=== PATIENT | female | born 1950 | race Caucasian/White ===

== ENCOUNTER 2020-07-07 12:23 | Emergency (ER) | payer MEDICARE, MEDICAID, SELFPAY ==
[2020-07-07 12:48] VITALS: BP 105/72; PULSE 90; RESP 20; TEMP 36.3; O2SAT 100
--- NOTE | 2020-07-07 12:49 | ED.GENADULT ---
HPI - General Adult General Chief complaint: Skin/Abscess/Foreign Body Stated complaint: right nipple pain Time Seen by Provider: 07/07/20 12:49 Source: patient and RN notes reviewed Mode of arrival: ambulatory Limitations: no limitations History of Present Illness HPI narrative: 70-year-old female presents with complaints of redness, warmth, tenderness, and swelling to right breast for the past 2 days. Fahad reports RT nipple became sore with nodule and then redness, warmth, and white areas over the past 24 hours. No treatment. History of breast cancer. Denies trauma to breast or chest wall. Denies radiation of tenderness, redness, or swelling. No exacerbating factor anything touching breast and allowing breast to hang freely. Denies open areas or drainage. Denies fever or chills. Denies nausea, vomiting, and abdominal pain. Tolerating po intake well. The patient reports she have not been diagnosed with COVID-19. The patient reports she is not waiting for the results of a COVID-19 lab test. The patient reports she do not have weakness or fatigue. The patient reports she do not have a new or worsening cough or shortness of breath. Denies chest pain. The patient reports she do not have any rhinorrhea, congestion, sore throat, loss of taste, nausea, and diarrhea. Denies recent traveling. Denies concerns for COVID-19 or exposures been home with limited outdoor exposure except for essential household needs and return home. At this time, patient is not suspected of having COVID-19. Some parts of this dictation were generated by voice recognition software and may contain typographical and/or grammatical inaccuracies. Related Data Home Medications Medication Instructions Recorded Confirmed insulin syringe-needle U-100 [BD 07/07/20 07/07/20 Veo Insulin Syringe UF] lorazepam 1 mg BID 07/07/20 07/07/20 montelukast 10 mg DAILY 07/07/20 07/07/20 prednisone 5 mg DAILY 07/07/20 07/07/20 tramadol 50 mg Q4-6H PRN 07/07/20 07/07/20 zolpidem 5 mg DAILY 07/07/20 07/07/20 Allergies Allergy/AdvReac Type Severity Reaction Status Date / Time aspirin Allergy Nausea Verified 07/07/20 12:54 Penicillins Allergy Rash Verified 07/07/20 12:54 Review of Systems Review of Systems: Narrative: CONSTITUTIONAL: Denies fever, chills, sweats. EYES: Denies visual changes, redness, discharge. ENT: Denies rhinorrhea, congestion, sore throat, otalgia. CARDIOVASCULAR: Denies chest pain, palpitations, edema. RESPIRATORY: Denies dyspnea, wheezing, cough. GASTROINTESTINAL: Denies abdominal pain, nausea, vomiting, diarrhea. GENITOURINARY: Denies dysuria, hematuria, abnormal discharge. SKIN: Complains of redness, swelling, warmth, and tenderness to right breast. MUSCULOSKELETAL: Denies acute back pain, joint pain, or myalgia. NEUROLOGIC: Denies numbness or focal weakness. PSYCHIATRIC: Denies anxiety or depression. All systems reviewed & are unremarkable except as noted in HPI and below. [facility] Past Medical History Medical History (Updated 07/07/20 @ 13:14 by JIM Burt) Anxiety Arthritis Breast cancer Left breast Degenerative disc disease Depression Diabetes Emphysema/COPD History of gastroesophageal reflux (GERD) Surgical History Surgical History (Updated 07/07/20 @ 13:14 by JIM Burt) H/O left breast biopsy Family History Family History (Updated 07/07/20 @ 13:15 by JIM Burt) Father Acute myocardial infarction Heart disease Mother Breast cancer Sibling Breast cancer Other Cervical cancer Social History Social History (Updated 07/07/20 @ 13:16 by JIM Burt) Smoking status: Former smoker Tobacco type: cigarettes Second hand tobacco smoke exposure: Yes Smoking end date: 01/04/78 Alcohol intake: never Substance use: never Living arrangements: alone Occupation/Education: retired Gender identity (if verbalized
== END 2020-07-07 13:04 | disposition home or self-care (01) ==
PROVIDERS: Emergency Provider Nurse Practitioner Family; PCP Family Medicine
DX: N61.0 Mastitis without abscess (principal); Z85.3 Personal history of malignant neoplasm of breast; Z87.891 Personal history of nicotine dependence; M19.90 Unspecified osteoarthritis, unspecified site; E11.9 Type 2 diabetes mellitus without complications; K21.9 Gastro-esophageal reflux disease without esophagitis; J44.9 Chronic obstructive pulmonary disease, unspecified; F41.9 Anxiety disorder, unspecified
CPT/HCPCS: 99203; G0463